=== PATIENT | female | born 1955 | race Caucasian/White ===

== ENCOUNTER 2017-03-08 17:10 | Emergency (ER) | payer OTHER ==
[2017-03-08] MEDS ORDERED: NS 1,000 ML IV ONE ×2 (17:14→17:34)
[2017-03-08 17:26] LABS: % IMMATURE GRANULYOCYTES 0.4 % (0.0-1.1); ABSOLUTE IMMATURE GRANULOCYTES 0.01 10^3/uL (0.00-0.10); ADD DIFF? NO; ADD MORPH? NO; ADD SCAN? NO; ATYPICAL LYMPHOCYTE FLAG 0 (0-99); FRAGMENT RBC FLAG 0 (0-99); HEMATOCRIT 42.9 % (38.0-47.0); HEMOGLOBIN 14.4 g/dL (12.6-16.3); LEFT SHIFT FLG 30 (0-99); LIPEMIA HEMOLYSIS FLAG 80 (0-99); MEAN CELL HEMOGLOBIN CONCENTR. 33.6 g/dL (32.4-36.7); MEAN CELL VOLUME 92.3 fL (81.5-99.8); MEAN PLATELET VOLUME 10.8 fL (8.7-11.7); PLATELET CLUMPS FLAG 0 (0-99); PLATELET COUNT 178 10^3/uL (150-400); RED BLOOD CELL COUNT 4.65 10^6/uL (4.18-5.33); RED CELL DISTRIBUTION WIDTH 12.9 % (11.5-15.2)
--- NOTE | 2017-03-08 17:36 | EDPHY ---
H & P Stated Complaint: cold s/y for 2 days, insulin pump malfunction, pt is dizzy with movment. Time Seen by Provider: 03/08/17 17:35 HPI/ROS: CHIEF COMPLAINT: Syncope HISTORY OF PRESENT ILLNESS: The patient presents to the emergency department after an episode of syncope. The patient reportedly was walking across the room when she became lightheaded. She collapsed into a couch. It was witnessed by her . There is no seizure activity. The patient has had an upper respiratory infection over the past several days. The patient also reports a history of diabetes with elevated blood sugars over the past several days. That seems to have improved when she change the tubing on her insulin pump. Her blood sugars had been in the upper 500s yesterday. The patient denies any cough, congestion, abdominal pain or vomiting. REVIEW OF SYSTEMS: A comprehensive 10 point review of systems is otherwise negative aside from elements mentioned in the history of present illness. Source: Patient Exam Limitations: No limitations - Personal History Current Tetanus/Diphtheria Vaccine: Yes Current Tetanus Diphtheria and Acellular Pertussis (TDAP): Yes - Medical/Surgical History Hx Asthma: No Hx Chronic Respiratory Disease: No Hx Diabetes: Yes Hx Cardiac Disease: No Hx Renal Disease: No Hx Cirrhosis: No Hx Alcoholism: No Hx HIV/AIDS: No Hx Splenectomy or Spleen Trauma: No Other PMH: pmh- DM T1, thyroid, depression, kidney stone - Social History Smoking Status: Former smoker - Physical Exam Exam: General Appearance: Alert, no distress Eyes: Pupils equal and round no pallor or injection ENT, Mouth: Mucous membranes moist Respiratory: There are no retractions, lungs are clear to auscultation Cardiovascular: Regular rate and rhythm Gastrointestinal: Abdomen is soft and nontender, no masses, bowel sounds normal Neurological: A&O, normal motor function, normal sensory exam, normal cranial nerves Skin: Warm and dry, no rashes Musculoskeletal: Neck is supple nontender Extremities: symmetrical, full range of motion Constitutional: Initial Vital Signs Temperature (C) 37.1 C 03/08/17 17:21 Heart Rate 88 03/08/17 17:21 Respiratory Rate 16 03/08/17 17:21 Blood Pressure 132/81 H 03/08/17 17:21 O2 Sat (%) 94 03/08/17 17:21 O2 Delivery Mode Room Air Allergies/Adverse Reactions: No Known Allergies Allergy (Verified 05/13/13 19:37) Home Medications: Medication Instructions Recorded LEVOTHYROXINE SODIUM [Tirosint 50 mcg PO Q2D 04/09/13 50mcg] Levothyroxine [Synthroid 75 mcg 75 mcg PO Q2D 04/09/13 (RX)] Lisinopril [Zestril 2.5 mg (RX)] 2.5 mg PO DAILY 04/09/13 Simvastatin [Zocor 20 mg (RX)] 20 mg PO DAILY 04/09/13 Subcutaneous Insulin Pump [Insulin 1 ea 04/09/13 Pump] Cymbalta 09/10/15 Ondansetron Odt [Zofran Odt] 4 mg PO Q4 PRN #10 tab 03/03/16 oxyCODONE/APAP 5/325 [Percocet 1 - 2 tab PO Q4H PRN #10 tab 03/03/16 5/325] Medical Decision Making - Diagnostics EKG Interpretation: EKG: Complete interpretation has been separately recorded in the [employer] archive. Summary impression: Sinus rhythm ED Course/Re-evaluation: The patient presents to the ED after a vasovagal episode. The patient has had upper respiratory illness and symptoms consistent with dehydration over the past several days. Patient did have elevated blood sugars which she continues to have today. There is no evidence of diabetic ketoacidosis. The patient was placed on a conveyor monitor in the ED without evidence of arrhythmia, the patient had no vital sign abnormalities. The patient does appear to be dehydrated clinically. She had an IV established and received 2 L of normal saline. The patient was re-evaluated at 9:00 p.m.. Her blood sugars now 112. She has no evidence of diabetic ketoacidosis or significant metabolic derangement. The patient is feeling much better. She would like to be discharged home. The patient presents to the ED after vasovagal episode from dehydration which has resolved with IV fluid rehydration. She is discharged home with customary aftercare instructions and return precautions. Differential Diagnosis: Differential diagnosis considered includes arrhythmia, metabolic abnormality, diabetic ketoacidosis, dehydration, renal failure - Data Points Laboratory Results: Laboratory Results 03/08/17 17:11 03/08/17 17:11 03/08/17 03/08/17 17:11 17:11 WBC 2.44 10^3/uL L 10^3/uL (3.80-9.50) RBC 4.65 10^6/uL 10^6/uL (4.18-5.33) Hgb 14.4 g/dL g/dL (12.6-16.3) Hct 42.9 % % (38.0-47.0) MCV 92.3 fL fL (81.5-99.8) MCH 31.0 pg pg (27.9-34.1) MCHC 33.6 g/dL g/dL (32.4-36.7) RDW 12.9 % % (11.5-15.2) Plt Count 178 10^3/uL 10^3/uL (150-400) MPV 10.8 fL fL (8.7-11.7) Neut % (Auto) 58.6 % % (39.3-74.2) Lymph % (Auto) 28.7 % % (15.0-45.0) [place] % (Auto) 11.5 % % (4.5-13.0) Eos % (Auto) 0.0 % L % (0.6-7.6) Baso % (Auto) 0.8 % % (0.3-1.7) Nucleat RBC Rel Count 0.0 % % (0.0-0.2) Absolute Neuts (auto) 1.43 10^3/uL L 10^3/uL (1.70-6.50) Absolute Lymphs (auto) 0.70 10^3/uL L 10^3/uL (1.00-3.00) Absolute Monos (auto) 0.28 10^3/uL L 10^3/uL (0.30-0.80) Absolute Eos (auto) 0.00 10^3/uL L 10^3/uL (0.03-0.40) Absolute Basos (auto) 0.02 10^3/uL 10^3/uL (0.02-0.10) Absolute Nucleated RBC 0.00 10^3/uL 10^3/uL (0-0.01) Immature Gran % 0.4 % % (0.0-1.1) Immature Gran # 0.01 10^3/uL 10^3/uL (0.00-0.10) Sodium 136 mEq/L mEq/L (134-144) Potassium 4.4 mEq/L mEq/L (3.5-5.2) Chloride 103 mEq/L mEq/L (97-110) Carbon Dioxide 18 mEq/l L mEq/l (22-31) Anion Gap 15 mEq/L mEq/L (8-16) BUN 20 mg/dL mg/dL (7-23) Creatinine 1.0 mg/dL mg/dL (0.6-1.0) Estimated GFR 57 Glucose 236 mg/dL H mg/dL (70-100) Calcium 9.6 mg/dL mg/dL (8.5-10.4) Medications Given: Discontinued Medications Sodium Chloride (Ns) 1,000 mls @ 0 mls/hr IV ONCE ONE PRN Reason: Wide Open Stop: 03/08/17 17:15 Last Admin: 03/08/17 18:08 Dose: 1,000 mls Sodium Chloride (Ns) 1,000 mls @ 0 mls/hr IV ONCE ONE PRN Reason: Wide Open Stop: 03/08/17 17:35 Last Admin: 03/08/17 18:09 Dose: 1,000 mls Departure - Departure Disposition: Home, Routine, Self-Care Clinical Impression: Vasovagal near syncope Condition: Good Instructions: Dehydration (ED), Syncope (ED), Viral Syndrome (ED) Additional Instructions: 1. Return to the ED for worsening symptoms, recurrent passing out, pain, vomiting or other concerns. 2. Please follow up with your primary care provider as needed. Referrals: Irma White MD [Medical Doctor] - As per Instructions
[2017-03-08 17:48] LABS: ANION GAP 15 mEq/L (8-16); CALCIUM 9.6 mg/dL (8.5-10.4); CARBON DIOXIDE 18 mEq/l (22-31); CHLORIDE 103 mEq/L (97-110); GLOMERULAR FILTRATION RATE 57; GLUCOSE 236 mg/dL (70-100); POTASSIUM 4.4 mEq/L (3.5-5.2); SODIUM 136 mEq/L (134-144)
--- NOTE | 2017-03-08 19:50 | CPEKG ---
Heart Rate: 93 RR Interval: 645 P-R Interval: 120 QRSD Interval: 80 QT Interval: 352 QTC Interval: 438 P [place]: 76 QRS [place]: 80 T Wave [place]: 65 EKG Severity - NORMAL ECG - EKG Impression: SINUS RHYTHM Electronically Signed By: Escobar Ray 08-Mar-2017 20:05:18
[2017-03-08] MEDS ORDERED: IBUPROFEN 600 MG TAB PO ONE ×2 (20:37→20:39)
[2017-03-08 21:11] VITALS: RESP 18
[2017-03-08 21:13] VITALS: BP 120/68; PULSE 70; TEMP 99.9; O2SAT 95
== END 2017-03-08 21:13 | disposition home or self-care (01) ==
LOC: EDUNIT#
DX: R55 Syncope and collapse (principal); E11.9 Type 2 diabetes mellitus without complications; Z87.891 Personal history of nicotine dependence
CPT/HCPCS: 82947-QW

== ENCOUNTER → 2017-08-31 | Outpatient (CLI) | payer OTHER | LOC: FIMAGING 13:55 | PROVIDERS: ATTEND Internal Medicine | DX: Z12.31 Encounter for screening mammogram for malignant neoplasm of breast (principal) | CPT/HCPCS: G0202 ==

== ENCOUNTER → 2017-12-19 | Outpatient (CLI) | payer OTHER ==
[~2017-12-19] MED LIST: GADOBUTROL 10 ML VIAL IVP ONE
== END ==
LOC: FIMAGING 10:10
PROVIDERS: ATTEND Internal Medicine
DX: Z13.820 Encounter for screening for osteoporosis (principal); M81.0 Age-related osteoporosis without current pathological fracture; E21.3 Hyperparathyroidism, unspecified; E11.9 Type 2 diabetes mellitus without complications
CPT/HCPCS: A9585

== ENCOUNTER → 2018-10-26 | Outpatient (CLI) | payer OTHER | LOC: FIMAGING 14:06 | PROVIDERS: ATTEND Internal Medicine | DX: Z12.31 Encounter for screening mammogram for malignant neoplasm of breast (principal) ==